=== PATIENT | male | born 1985 | race Hispanic/Latino ===

== ENCOUNTER 2025-07-18 08:01 | Emergency (ER) | payer SELFPAY ==
[~2025-07-18] VITALS: Ht 177.8 cm; Wt 122.5 kg
[2025-07-18] MEDS ORDERED: LIDOCAINE HCL 1% 20 ML VIAL INJ STA (08:07)
[2025-07-18 08:37] VITALS: BP 133/91; PULSE 83; RESP 18; TEMP 98.1; O2SAT 95
--- NOTE | 2025-07-18 08:59 | ERN ---
ED Note History of Present Illness Stated Complaint: FINGER INJURY Chief Complaint: Finger Injury Time Seen by MD: 08:06 Dictation: 32-year-old male presenting to the emergency department after he got fishing hook stuck in his right thumb, no other complaints, Allergies: Coded Allergies: No Known Drug Allergies (Unverified Allergy, Unknown, 07/18/25) Past Medical History Past Medical History: No Pertinent History Surgical History: None Review of System Dictation Constitutional: Negative for fever,chills, and weight loss Cardiovascular: Negative for chest pain, palpitations, and edema Respiratory: Negative for shortness of breath, cough, and wheezing, Abdomen/GI: Negative for abdominal pain, nausea, vomiting, diarrhea, and constipation Back: Negative for injury and pain : Negative for injury, bleeding and discharge MS/Extremity: Per HPI Skin: Negative for rash, and discoloration Neuro: Negative for headache, weakness, numbness, tingling, and seizure Initial Vital Sign VS Vital Signs Date Time Temp Pulse Resp B/P (MAP) Pulse Ox O2 Delivery O2 Flow Rate FiO2 07/18/25 08:03 97.5 96 17 133/96 99 Room Air 0 07/18/25 08:37 21 Physical Exam Dictation General: awake, alert, NAD Head/Face: Normocephalic, atraumatic Eyes: PERRL, EOMI, vision at baseline ENT: oral cavity clear, TMs clear, no signs of infection Neck: Trachea midline, supple, no nuchal rigidity Cardiovascular: RRR, normal S1/S2, No MRGs, no JVD Respiratory: CTAB, no respiratory distress, No rales or wheezes Abdomen: Soft, non-tender, non-distended, normal bowel sounds, no guarding or rebound. Skin: Warm, dry, normal turgor, no rash MS/Extremity: Pulses equal, no cyanosis, neurovascular intact, FROM, hook punctured into right thumb, soft tissue area. Neuro: COAx4, GCS 15, strength 5/5, CN 2-12 intact, normal cerebellar exam, normal gait, Psych: Normal behavior, mood, and affect normal ED Course ED Course Orders Procedure Category Date Status Time Tetanus,Diphtheria PHA 07/18/25 Complete Tox [Adult] (Diphther 08:30 Lidocaine Hcl 1% 20ml PHA 07/18/25 Complete Vial (Lidocaine Hc 08:07 Current Medications Medications (Trade) Dose Ordered Sig/Cielo Route PRN Reason Start Time Stop Time Status Last Admin Dose Admin Lidocaine HCl (Lidocaine HCl 1% 20ml Vial) 20 ml ONCE STAT INJ 07/18/25 08:07 07/18/25 08:09 DC Tetanus/ Diphtheria Toxoids Adsorbed (DiphthERIA-teTANUS TOXOID [ADULT]/ DECAVAC) 0.5 ml ONCE ONCE IM 07/18/25 08:30 07/18/25 08:31 DC Vital Signs Date Time Temp Pulse Resp B/P (MAP) Pulse Ox O2 Delivery O2 Flow Rate FiO2 07/18/25 08:37 98.1 83 18 133/91 95 Room Air* 0 21 07/18/25 08:03 97.5 96 17 133/96 99 Room Air 0 Medical Decision Making MDM MDM: Differential diagnosis: Rationale: Tests considered and ordered secondary to shared decision making include: Previous outside records reviewed: Old ER visits. Risk of complication and/or morbidity or mortality of patient management: None Medications-Per medication reconciliation Need for hospitalization: Patient does not meet criteria for hospitalization. Need for emergency major/minor surgery: No There are no social concerns with this patient. Prescription drug management Prescriptions will include symptomatic care Patient's prior external medical records from other ER visits were reviewed by me as indicated. Prior testing and results from previous visits were reviewed. Prior tests were taken into account with medical decision making and resource utilization, independent historian/historians were used to obtain complete medical history. I independently interpreted the test that were performed, results were reviewed by me and considered findings on radiology if ordered. Medical management and examination interpretation discussions were had by me with other qualified healthcare professionals as indicated for the patient's care. 40-year-old with fish hook to right thumb, this was removed with by me, local anesthetic 1% lidocaine and pliers with wire cutters, no complication soft tissue not into the bone, placed on antibiotics and tetanus updated Procedure Procedure Dictation: Procedure note for foreign body-fishing hook to right thumb, into the soft tissue,, local anesthetic given wound was sterilized with sterile prep, pliers were used to push needle magnolia through and industrial equipment wirer, fishing hook was removed completely only into the soft tissue no bony involvement DX & DISP Disposition: Discharge Departure Impression: Primary Impression: Fish hook injury of finger of right hand Condition: Stable Scripts Amoxicillin/Potassium Clav (Amox Tr-K Clv 875-125 mg Tab) 875 Mg-125 Mg Tablet 1 TAB PO BID for 7 Days, #14 TAB 0 Refills Prov: COLLIN HAMPTON MD 07/18/25 COLLIN HAMPTON MD Jul 18, 2025 08:59
== END 2025-07-18 09:19 | disposition home or self-care (01) ==
LOC: EDH 08:01
DX: S60.351A Superficial foreign body of right thumb, initial encounter (principal); W45.3XXA Fishing hook entering through skin, initial encounter; Y93.89 Activity, other specified; Y92.89 Other specified places as the place of occurrence of the external cause; Y99.8 Other external cause status
CPT/HCPCS: 90714; 99284; J2003